=== PATIENT | female | born 1965 | race Caucasian/White ===

== ENCOUNTER 2017-10-20 18:27 | Emergency (ER) | payer OTHER ==
[~2017-10-20] VITALS: Ht 157.5 cm; Wt 76.3 kg
[~2017-10-20 18:27] MED LIST: ADVAIR 250/501 DISK IH; ALDACTONE25 MG PO; ALPRAZOLAM0.25 M2 PO; BUPROPION HCL75 MG PO; DULOXETINE HCL60 MG PO; HUMIRA40 MG/0.8 SC; LASIX20 MG PO; LO-DOSE ASPIRIN81 M2 PO; NEXIUM40 MG PO; POTASSIUM CHLO10 ME3 PO; PROAIR HFA8.5 GM IH; PROMETHAZINE HC25 M1 PO; PROVENTIL HFA6.7 GM IH; PURENETHOL50 MG PO; SYNTHROID112 MCG PO; TOPROL XL25 MG PO
[2017-10-20 19:56] LABS: HEMATOCRIT 42.4 % (36.0-46.0); HEMOGLOBIN 13.7 G/DL (11.9-15.5); MCHC 32.3 G/DL (30.0-36.0); PLATELET COUNT 276 K/uL (156-360); RBC DIS.WIDTH-CV 13.8 % (11.8-14.6); RBC DIS.WIDTH-SD 46.6 % (39-53); RED BLOOD COUNT 4.56 M/uL (3.80-5.20); WHITE BLOOD COUNT 8.3 K/uL (4.1-10.2)
[2017-10-20 20:02] LABS: APPEARANCE SL.HAZY ((CLEAR)); BILIRUBIN NEGATIVE; BLOOD MODERATE; COLOR YELLOW ((YELLOW)); GLUCOSE (STRIP) NEGATIVE; KETONES NEGATIVE; LEUKOCYTES SMALL; NITRITE NEGATIVE; PROTEIN (STRIP) NEGATIVE; SPECIFIC GRAVITY 1.005 (1.000-1.030); UROBILINOGEN 0.2 MG/DL (0.2-1.0)
[2017-10-20 20:03] LABS: ALBUMIN 3.8 g/dL (3.2-4.8); CHLORIDE 105 mEq/L (99-109); POTASSIUM 4.1 mEq/L (3.7-5.4); SODIUM 136 mEq/L (136-147)
[2017-10-20 20:05] LABS: GLUCOSE 81 mg/dL (70-99)
[2017-10-20 20:06] LABS: BACTERIA RARE /HPF; EPITHELIAL CELLS 2+ /HPF; HYALINE CASTS 0-5 /LPF; MUCUS TRACE /LPF; RED BLOOD CELLS 0-5 /HPF (0-5); UCUL ADDED? YES
[2017-10-20 20:07] LABS: TOTAL BILIRUBIN 0.9 mg/dL (0.0-1.0)
[2017-10-20 20:09] LABS: ALKALINE PHOSPHATASE 59 IU/L (3-129); CREATININE 1.2 mg/dL (0.6-1.3); GFR ESTIMATE (CALCULATED) 50 mL/min/
[2017-10-20 20:10] LABS: UREA NITROGEN (BUN) 12 mg/dL (9-23)
[2017-10-20 20:11] LABS: AST (GOT) 18 IU/L (2-34)
[2017-10-20 20:12] LABS: ALT (GPT) 13 IU/L (3-49)
[2017-10-20] MEDS ORDERED: PERCOCET 5/31 TABLET PO (22:10)
[2017-10-20] MEDS ORDERED: FLOMAX0.4 MG PO (22:10)
[2017-10-20 22:31] VITALS: BP 105/62
== END 2017-10-20 22:32 | disposition home or self-care (01) ==
LOC: EME 18:27
PROVIDERS: Nurse Practitioner Family
DX: N20.0 Calculus of kidney (principal); K50.90 Crohn's disease, unspecified, without complications; K59.00 Constipation, unspecified; N88.9 Noninflammatory disorder of cervix uteri, unspecified; F41.9 Anxiety disorder, unspecified; Z79.82 Long term (current) use of aspirin; Z79.51 Long term (current) use of inhaled steroids; Z87.891 Personal history of nicotine dependence; Z95.1 Presence of aortocoronary bypass graft; Z95.0 Presence of cardiac pacemaker; Z87.442 Personal history of urinary calculi; Z93.3 Colostomy status; Z90.49 Acquired absence of other specified parts of digestive tract; Z90.89 Acquired absence of other organs; Z91.041 Radiographic dye allergy status; Z88.1 Allergy status to other antibiotic agents; Z88.6 Allergy status to analgesic agent; Z88.5 Allergy status to narcotic agent
CPT/HCPCS: 74176; 80053; 81003; 85027; 87086 GA; 99281; 99284; J3010; J7030